=== PATIENT | female | born 1975 | race Caucasian/White ===

== ENCOUNTER → 2019-08-23 | Outpatient (CLI) | payer OTHER | LOC: COL.RAD 08-19 14:00 | DX: M54.2 Cervicalgia (principal) ==

== ENCOUNTER → 2019-09-27 | Outpatient (CLI) | payer OTHER | LOC: MHCPAIN 11:42 | DX: M54.12 Radiculopathy, cervical region (principal); M47.812 Spondylosis without myelopathy or radiculopathy, cervical region | CPT/HCPCS: G0463 ==

== ENCOUNTER → 2019-12-05 | Outpatient (CLI) | payer OTHER | LOC: MHCPAIN 10:07 | DX: M54.6 Pain in thoracic spine (principal); M47.22 Other spondylosis with radiculopathy, cervical region | CPT/HCPCS: G0463 ==

== ENCOUNTER → 2019-12-19 | Outpatient (CLI) | payer OTHER | LOC: MHCPAIN 11:38 | DX: M79.621 Pain in right upper arm (principal) | CPT/HCPCS: J1100; Q9967 ==

== ENCOUNTER → 2020-04-25 | Outpatient (CLI) | payer OTHER | LOC: MHCPAIN 14:39 | DX: M47.812 Spondylosis without myelopathy or radiculopathy, cervical region (principal); M54.2 Cervicalgia; G89.29 Other chronic pain; M54.12 Radiculopathy, cervical region | CPT/HCPCS: G0463 ==

== ENCOUNTER → 2020-05-03 | Outpatient (CLI) | payer OTHER | LOC: MHCPAIN 13:19 | DX: M47.812 Spondylosis without myelopathy or radiculopathy, cervical region (principal); M54.2 Cervicalgia | CPT/HCPCS: J1100; Q9967 ==

== ENCOUNTER → 2020-05-15 | Outpatient (CLI) | payer OTHER | LOC: MHCPAIN 15:10 | DX: M47.812 Spondylosis without myelopathy or radiculopathy, cervical region (principal); M54.12 Radiculopathy, cervical region; G89.29 Other chronic pain; R51 Headache | CPT/HCPCS: G0463 ==

== ENCOUNTER → 2020-11-14 | Outpatient (CLI) | payer OTHER | LOC: MHCPAIN 08:28 | DX: M47.812 Spondylosis without myelopathy or radiculopathy, cervical region (principal); M54.12 Radiculopathy, cervical region; M48.02 Spinal stenosis, cervical region; G89.29 Other chronic pain | CPT/HCPCS: G0463 ==

== ENCOUNTER → 2020-11-19 | Outpatient (CLI) | payer OTHER | LOC: MHCPAIN 13:14 | DX: M47.812 Spondylosis without myelopathy or radiculopathy, cervical region (principal); M54.12 Radiculopathy, cervical region | CPT/HCPCS: J0461; J1100; Q9967 ==

== ENCOUNTER → 2021-02-26 | Outpatient (CLI) | payer OTHER | LOC: MHCPAIN 07:58 | DX: M47.812 Spondylosis without myelopathy or radiculopathy, cervical region (principal); M54.2 Cervicalgia; M54.12 Radiculopathy, cervical region; G89.29 Other chronic pain | CPT/HCPCS: G0463 ==

== ENCOUNTER → 2021-02-28 | Outpatient (CLI) | payer OTHER | LOC: MHCPAIN 09:49 | DX: M47.812 Spondylosis without myelopathy or radiculopathy, cervical region (principal); M54.2 Cervicalgia; M54.12 Radiculopathy, cervical region | CPT/HCPCS: J1100; Q9967 ==

== ENCOUNTER 2023-09-15 10:03 | Outpatient (RCR) | payer OTHER | END 2023-10-11 | disposition home or self-care (01) | LOC: WSOT | DX: G56.00 Carpal tunnel syndrome, unspecified upper limb (principal) ==